=== PATIENT | male | born 1970 | race Two or more races ===

== ENCOUNTER 2025-08-31 20:38 | Inpatient (IN) | payer BC ==
[~2025-08-31] VITALS: Ht 177.8 cm; Wt 90.4 kg
[2025-08-31 21:26] VITALS: BP 154/118; PULSE 86; RESP 17; TEMP 97.7; O2SAT 97
[2025-08-31] MEDS ORDERED: AMOX500C2 PO (23:19)
[2025-08-31] MEDS ORDERED: TAMS-35 PO (23:19)
[2025-08-31 23:44] LABS: Hematocrit 42.7 % (41.0-53.0); Hemoglobin 14.5 g/dL (13.5-17.5); Mean Corpuscular Hemoglobin 29.7 pg (28.0-32.0); Mean Corpuscular Volume 87.6 fL (80.0-100.0); Nucleated Red Blood Cells % 0.1 %
[2025-08-31 23:55] LABS: Alanine Aminotransferase 30 U/L (7-40); Albumin 4.2 g/dL (3.2-4.8); Alkaline Phosphatase 89 U/L (46-116); Anion Gap 9 (5-15); BUN/Creatinine Ratio 15.6 (10.0-20.0); Blood Urea Nitrogen 17 mg/dL (9-23); Calcium 9.5 mg/dL (8.7-10.4); Carbon Dioxide 27 mmol/L (20-31); Chloride 105 mmol/L (98-107); Glucose 97 mg/dL (74-106); Potassium 3.6 mmol/L (3.5-5.1); Sodium 141 mmol/L (136-145); Total Protein 7.2 g/dL (5.7-8.2); Urine Protein, UAD Negative (Negative)
[2025-08-31 23:56] LABS: Bilirubin, Total 0.7 mg/dL (0.2-1.0)
[2025-09-01] VITALS (7 sets, daily range): BP systolic 141–153; BP diastolic 92–107; PULSE 65–92; RESP 16–18; TEMP 97.4–98.6; O2SAT 96–98
[2025-09-01] MEDS ORDERED: VALSARTAN 80 MG TAB PO SCH (00:30)
[2025-09-01] MEDS ORDERED: ACETAMINOPHEN 325 MG TAB PO PRN (00:30)
[2025-09-01] MEDS ORDERED: ONDANSETRON HCL 4 MG/2 ML VIAL IV PRN (00:30)
[2025-09-01] MEDS: SOD CHL 0.45% 1,000 ML IV SCH (00:45)
[2025-09-01] MEDS ORDERED: HYDROmorphone HCL 2 MG/ML VL/or syr IV PRN (00:45)
--- NOTE | 2025-09-01 00:48 | DVHHP2 ---
Admitting Diagnosis: Recurrence of R ureter colic [place] Nephrosis R kidney Urinary tract infection-partially treated History of Present Illness Dougie Watson, 55-year-old middle-aged male with known history of recurrent nephrolithiasis and hydronephrosis is admitted for further eval and management Further eval and management of recurrent severe flank pains, dysuria, hematuria frequency of urine, fever, chills x 4 weeks. As per patient, he developed symptoms of R flank pains around August 12 2025, He received evaluation at ER of [facility] and was diagnosed R hydronephrosis. He was discharged home with non-steroidals, and advised plenty of fluids. Subsequently in following two weeks, he received CT abdomen evaluation at ER of one of the hospitals in [place] and diagnosed to have R hydronephrosis. He was recommended to receive Flomax. The patient saw me in my office on 08/24/2025 Recommended him to receive hospitalization. He deferred stating that he had scheduled family trip to [facility] by 08/28/2025. Subsequently I had case discussion with his Nataly about complications from not receiving treatment in time could result into obstructive uropathy and possible acute renal failure. Recommended him to receive Renal /bladder ultrasound and lab exams as outpatient The patient presented to my office with fever, chills, recurrent severe flank pains, dysuria, hematuria and frequency of urine. Patient stated he is not feeling well. He was noted to be febrile, hypovolemic and L CVA tender His urine analysis remarkable for proteinuria, hematuria suggestive of acute pyelonephritis. Following to my case discussion with Shannon malt house loader I admitted patient to [facility]. Past Medical History Past medical history records: Reviewed Cardiovascular history: Hypertension for past several years-currently on no antihypertensives Respiratory history: No history of COPD Gastrointestinal history: Hiatal hernia, GE reflux, Kang's esophagus history of acute pancreatitis 10/2022 Genitourinary history: Nephrolithiasis, R ureter colic complicated by bilateral hydronephrosis through CT scan-10/2022 Recurrence of R ureteric colic, hydronephrosis R kidney and UTI Since 08/12/2025 Endocrine history: Hypercholesterolemia Neurology history: No history of TIA/CVA Neuro- Musculoskeletal history: R Knee meniscus injury and chondromalacia R femur Past Surgical History R knee surgery Social History Socioeconomic status: , lives with spouse employed as a teacher History of smoking: Cigarettes: Never History of smoking E cigarettes: Denies History of smoking marijuana: Denies History of drinking alcohol: Gladis History of substance abuse: Never Patient Family History: Patient reports no known family medical history. Allergies: Coded Allergies: NO KNOWN ALLERGIES (Unverified , 09/01/25) As per patient Home Meds Active Scripts Aspirin (ASPIRIN 81) 81 Mg Tab, 81 MG OR DAILY for 100 Days, #100 TAB Prov:JESSE WOOTEN MD 09/04/25 Atorvastatin Calcium (Lipitor) 10 Mg Tab, 1 TAB PO PC dinner, #100 TAB 1 Refill Hold if calf muscle pains Prov:JESSE WOOTEN MD 09/04/25 Valsartan (Valsartan) 80 Mg Tab, 80 MG PO DAILY, #30 TAB 2 Refills Hold if dizzy/ SBP <110 report to PMD if angioedema Prov:JESSE WOOTEN MD 09/04/25 Reported Medications Tamsulosin Hcl (Flomax) 0.4 Mg Cap, 1 CAP PO DAILY, #30 CAP 11 Refills 08/31/25 Discontinued Reported Medications Amoxicillin Trihydrate (Amoxicillin) 500 Mg Cap, 1 CAP PO BID, #20 CAP 08/31/25 Current Medications Review of Systems Constitutional: Reports easy tiredness, fever chills weight loss HEENT: Denies headache/conjunctival/ENT pains or congestion, Denies hoarse voice, hearing or visual deficit Neck: Denies cervical spine local/radicular pains, denies goiters/stridor Denies stiffness spasms, reduced ROM, RS: Denies chest congestion, cough, wheezing, SOB, pleuritic chest pains CVS: Denies angina, palpitation, SOB, edema, orthopnea, PND GI: Reports loss of appetite, RLQ abdominal pains, tenderness, Denies melena, GI bleeding,constipation, N/V/D, : Reports dysuria, flank pains, frequency, hematuria, Reports passing foul odor/cloudy turbid urine, nocturia MS: Denies generalized aches/pains, back pains, spasms, stiffness, Denies radicular pains, denies generalized myalgias/muscle weakness EXTs: Denies edema, rash, open wounds, discoloration, radicular pains NEURO: Denies hypersomnolence, confused mental status, Denies focal weakness or seizures/tremors/myoclonic jerks SKIN: Denies rashes or open ulcerated wound ENDOCRINE: Denies polyuria, polydipsia, denies intolerance to heat and cold HEM/LYMPH: Denies bruising, lymphadenopathy ALLERGY: Denies allergic reactions Psychiatry: Denies anxiety or depression disorder Otherwise the Review of Systems is Negative as per History & Physical Interview: Yes Vital Signs Vital Signs Date Time Temp Pulse Resp B/P (MAP) Pulse Ox O2 Delivery O2 Flow Rate FiO2 09/04/25 05:18 98.7 60 18 97 09/04/25 05:00 127/91 (103) 09/03/25 20:17 Room Air* 0 21 Physical Exam Vital Signs Date Time Temp Pulse Resp B/P (MAP) Pulse Ox O2 Delivery O2 Flow Rate FiO2 08/31/2025 21:26 97.7 86 17 154/118 (130) 97 98.6 General appearance: Well-developed, well-nourished middle-aged white male Noted to be hypovolemic generally weak, no respiratory distress Head: Normocephalic nontraumatic Eyes: EOMI, ROXANN, sclera nonicteric, conjunctive- pale Fundoscopy-grade 1 av changes ENT: No congestion, NSL bilateral symmetrical, oral mucosa dry Neck: Supple, carotid upstroke +2, trachea midline, JVD-3 cm, C spine- Full ROM No thyroid or lymph node , no use of sternomastoid muscle Chest: Bilateral symmetrical expansions,No costochondral tenderness Lungs: clear breath sounds all over except reduced at bases CVS: PMI-1cm medial to L MCL in fifth ICS , S1-S2 NSR no S3 GI: Abdomen soft, obese, bowel sounds normoactive, no mass No focal/rebound tenderness, No hepatosplenomegaly, No hernia , : R CVA tenderness, no bladder mass palpable, genitalia-NE SKIN: Turgor dry, color pink, no rash, no icterus,no ulcers or wounds EXTs: No edema, color pink, no rash, no ecchymosis, No open wounds PULSE: distal pulses +2 capillary refill <2 seconds, JOINTS: full range of motion BACK: No apparent lumbosacral spinal muscle tenderness LYMPH NODES: No cervical, axillary or inguinal lymph nodes Neuro: Awake alert oriented 4, coherent, all cognitives- intact No pronator drift, no focal motor deficit, No focal sensory deficit, DTR +2, gait steady Labs Test 08/31/25 23:29 Range/Units White Blood Count 5.4 4.4-10.8 10^3/uL Red Blood Count 4.87 4.5-5.90 10^6/uL Hemoglobin 14.5 13.5-17.5 g/dL Hematocrit 42.7 41.0-53.0 % Mean Corpuscular Volume 87.6 80.0-100.0 fL Mean Corpuscular Hemoglobin 29.7 28.0-32.0 pg Mean Corpuscular Hemoglobin Concent 33.9 32.0-36.0 g/dL Red Cell Distribution Width 13.1 11.8-14.3 % Platelet Count 217 140-450 10^3/uL Mean Platelet Volume 7.3 6.9-10.8 fL Neutrophils (%) (Auto) 54.9 37.0-80.0 % Lymphocytes (%) (Auto) 26.0 10.0-50.0 % Monocytes (%) (Auto) 11.6 0.0-12.0 % Eosinophils (%) (Auto) 6.6 0.0-7.0 % Basophils (%) (Auto) 0.9 0.0-2.0 % Neutrophils # (Auto) 3.0 1.6-8.6 10 ^3/uL Lymphocytes # (Auto) 1.4 0.4-5.4 10 ^3/uL Monocytes # (Auto) 0.6 0-1.3 10 ^3/uL Eosinophils # (Auto) 0.4 0-0.8 10 ^3/uL Basophils # (Auto) 0 0-0.2 10 ^3/uL Nucleated Red Blood Cells 0.1 % Urine Color Light-yellow Yellow Urine Clarity Clear Clear Urine pH 5.5 5.0-9.0 Urine Specific [place] 1.028 1.001-1.035 Urine Protein Negative Negative Urine Ketones Negative Negative Urine Blood 1+ H Negative /uL Urine Nitrite Negative Negative Urine Bilirubin Negative Negative Urine Urobilinogen Normal Negative mg/dL Urine Leukocyte Esterase Negative Negative /uL Urine RBC 8 0 - 3 /hpf Urine Microscopic WBC 6 H 0-3 /HPF Urine Squamous Epithelial Cells None seen <5 /hpf Urine Calcium Oxalate Crystals Few None Seen Urine Bacteria None seen None Seen /hpf Urine Hyaline Casts Few 0 - 2 /lpf Urine Mucus Few None Seen Urine Glucose Normal Normal mg/dL Sodium Level 141 136-145 mmol/L Potassium Level 3.6 3.5-5.1 mmol/L Chloride Level 105 98-107 mmol/L Carbon Dioxide Level 27 20-31 mmol/L Anion Gap 9 5-15 Blood Urea Nitrogen 17 9-23 mg/dL Creatinine 1.09 0.700-1.30 mg/dL Glomerular Filtration Rate Calc 80 >90 mL/min BUN/Creatinine Ratio 15.6 10.0-20.0 Serum Glucose 97 74-106 mg/dL Calcium Level 9.5 8.7-10.4 mg/dL Total Bilirubin 0.7 0.2-1.0 mg/dL Aspartate Amino Transferase (AST) 28 13-40 U/L Alanine Aminotransferase (ALT) 30 7-40 U/L Alkaline Phosphatase 89 46-116 U/L Total Protein 7.2 5.7-8.2 g/dL Albumin 4.2 3.2-4.8 g/dL PROCEDURE(s): ABPL - CT AB PEL WO CON-NO ORAL OR IV REASON: right flank pain, hx of kidney stone ORDER NUMBER(s): [id number], ACCESSION NUMBER(s): [id number] Exam: CT CT AB PEL WO CON-NO ORAL OR IV RESULTS PENDING SEPSIS Sepsis Screen Physician Orders Ct Ab Pel Wo Con-No Oral Or Iv (09/01/25 00:19) Blood Culture (09/01/25 00:40) Admit (09/01/25 04:44) * Gu Consult (09/01/25 09:00) Kub Abdomen Single View (09/03/25 07:45) Discharge (09/04/25 03:06) Vital Signs Date Time Temp Pulse Resp B/P (MAP) Pulse Ox O2 Delivery O2 Flow Rate FiO2 09/04/25 05:18 98.7 60 18 97 09/04/25 05:00 98.2 60 18 127/91 (103) 97 98.2 09/04/25 01:00 98.3 65 18 142/78 (99) 96 98.3 09/03/25 21:00 98.4 76 18 129/87 (101) 96 98.4 09/03/25 20:17 16 95 Room Air* 0 21 09/03/25 18:22 134/74 09/03/25 17:15 161/89 09/03/25 16:28 98.1 73 18 131/89 (103) 96 98.1 09/03/25 12:47 97.9 62 20 152/98 (116) 97 97.9 09/03/25 08:57 97.9 65 18 136/92 (107) 98 97.9 09/03/25 08:08 88 18 95 Room Air* 0 21 Laboratory Tests Test 08/31/25 23:29 09/01/25 06:22 09/03/25 06:48 White Blood Count 5.4 10^3/uL (4.4-10.8) 4.4 10^3/uL (4.4-10.8) 6.0 10^3/uL (4.4-10.8) # Results Labs Test 09/03/25 09:45 09/03/25 06:48 09/01/25 12:09 09/01/25 06:27 Range/Units Urine Color Yellow Yellow Urine Clarity Clear Clear Urine pH 5.5 5.0-9.0 Urine Specific [place] 1.024 1.001-1.035 Urine Protein Negative Negative Urine Ketones Negative Negative Urine Blood 1+ H Negative /uL Urine Nitrite Negative Negative Urine Bilirubin Negative Negative Urine Urobilinogen Normal Negative mg/dL Urine Leukocyte Esterase Negative Negative /uL Urine RBC 7 0 - 3 /hpf Urine Microscopic WBC 4 H 0-3 /HPF Urine Squamous Epithelial Cells Few <5 /hpf Urine Bacteria None seen None Seen /hpf Urine Mucus Few None Seen Urine Glucose Normal Normal mg/dL White Blood Count 6.0 # 4.4-10.8 10^3/uL Red Blood Count 4.47 L 4.5-5.90 10^6/uL Hemoglobin 13.4 L 13.5-17.5 g/dL Hematocrit 38.8 L 41.0-53.0 % Mean Corpuscular Volume 86.8 80.0-100.0 fL Mean Corpuscular Hemoglobin 30.0 28.0-32.0 pg Mean Corpuscular Hemoglobin Concent 34.6 32.0-36.0 g/dL Red Cell Distribution Width 13.0 11.8-14.3 % Platelet Count 188 140-450 10^3/uL Mean Platelet Volume 7.3 6.9-10.8 fL Neutrophils (%) (Auto) 61.9 37.0-80.0 % Lymphocytes (%) (Auto) 20.4 10.0-50.0 % Monocytes (%) (Auto) 9.7 0.0-12.0 % Eosinophils (%) (Auto) 7.5 H 0.0-7.0 % Basophils (%) (Auto) 0.5 0.0-2.0 % Neutrophils # (Auto) 3.7 1.6-8.6 10 ^3/uL Lymphocytes # (Auto) 1.2 0.4-5.4 10 ^3/uL Monocytes # (Auto) 0.6 0-1.3 10 ^3/uL Eosinophils # (Auto) 0.4 0-0.8 10 ^3/uL Basophils # (Auto) 0 0-0.2 10 ^3/uL Nucleated Red Blood Cells 0.0 % Sodium Level 141 136-145 mmol/L Potassium Level 3.8 3.5-5.1 mmol/L Chloride Level 107 98-107 mmol/L Carbon Dioxide Level 24 20-31 mmol/L Anion Gap 10 5-15 Blood Urea Nitrogen 19 9-23 mg/dL Creatinine 1.37 H 0.700-1.30 mg/dL Glomerular Filtration Rate Calc 61 >90 mL/min BUN/Creatinine Ratio 13.9 10.0-20.0 Serum Glucose 94 74-106 mg/dL Calcium Level 8.2 L 8.7-10.4 mg/dL Total Bilirubin 0.7 0.2-1.0 mg/dL Aspartate Amino Transferase (AST) 21 13-40 U/L Alanine Aminotransferase (ALT) 24 7-40 U/L Alkaline Phosphatase 74 46-116 U/L Total Protein 6.3 5.7-8.2 g/dL Albumin 3.6 3.2-4.8 g/dL Influenza Type A Antigen Negative Negative Influenza Type B Antigen Negative Negative SARS-CoV-2 Antigen (Rapid) Negative NEGATIVE Hemoglobin A1c 5.6 <5.7 % A1C Test 09/01/25 06:22 08/31/25 23:29 Range/Units Prothrombin Time 11.1 9.3-11.8 sec Prothrombin Time INR 1.05 0.9-1.15 Activated Partial Thromboplast Time 29.4 24.5-34.5 SEC Phosphorus Level 2.8 2.4-5.1 mg/dL Magnesium Level 2.0 1.6-2.6 mg/dL Triglycerides Level 187 H < 150 mg/dL Cholesterol Level 207 H < 200 mg/dL LDL Cholesterol 142 H < 100 mg/dL HDL Cholesterol 43 40-59 mg/dL Amylase Level 30 30-118 U/L Free Prostate Specific Antigen 0.31 N/A ng/mL Percent Free Prostate Specific Ag 14.1 . % Prostate Specific Antigen Total 2.2 0.0-4.0 ng/mL Vitamin B12 Level 533 211-911 pg/mL Urine Calcium Oxalate Crystals Few None Seen Urine Hyaline Casts Few 0 - 2 /lpf Microbiology Date/Time Source Procedure Growth Status 09/03/25 09:45 Voided Urine Urine Culture - Final Complete 09/01/25 01:11 Blood Blood Culture - Preliminary NO GROWTH AFTER 72 HOURS OF INCUBATION. Resulted Primary Diagnosis RECURRENCE OF R URETERIC STONE HYDRONEPHROSIS OF R KIDNEY Admitting Diagnosis: Recurrence of R ureter stone Suspect hydronephrosis R kidney Urinary tract infection-suspect Acute pyelonephritis Hypovolemia Uncontrolled hypertension 2' Diagnosis/Comorbidities Overweight obesity Medical decision making The patient has been symptomatically ill past 3-4 weeks and has become critically ill from treatment of suspected hydronephrosis, obstructive uropathy and possible acute pyelonephritis. Case was discussed with TERRY Huber who attended patient and transferred the care to tx from late evening of08/31/2025 * Recommended patient to receive CT abdomen * May need urology intervention * Recommended IV hydration * Recommended urine analysis, urine culture and IV antibiotics * Recommended parenteral analgesics for pain management Hypertension * Noted uncontrolled hypertension * Recommended antihypertensive medications Plan Admit patient to medical floor Recommended patient to receive CT abdomen Consider urology consult Recommended IV hydration Recommended urine analysis, urine culture and IV antibiotics Recommended parenteral analgesics for pain management Recommended antihypertensive medications Reconcile home medication VTE precautions Update patient The patient and/or family is well informed by me about 1. Clinical impression, treatment plans, side effects of medications, course of the disease and guarding prognosis 2. All patient's question/ concerns raised by patient are satisfactorily addressed by me Plan discussed with: Patient Code Visit Code Visit Total Time (mins): 120 JESSE WOOTEN MD Sep 01, 2025 00:48
--- NOTE | 2025-09-01 01:57 | DVH ---
Exam: CT CT AB PEL WO CON-NO ORAL OR IV History: right flank pain, hx of kidney stone Comparison Study: None Technique: Multidetector spiral CT of the abdomen was performed from lung bases to pubic symphysis. I maging was performed without IV contrast. Axial, coronal and sagittal multiplanar reformats were obta ined from the axial data set by the technologist. Radiation Dose : 1. Abdomen/Pelvis: CTDIvol 9.39 mGy, DLP 525.94 mGy*cm. Findings: Evaluation of solid organs is limited due to lack of intravenous contrast use. Lower Chest: No acute findings. Liver: Diffuse hypoattenuation. Gallbladder and Biliary Tree: Unremarkable Pancreas: Mild atrophy. Spleen: Unremarkable. Adrenal Glands: Unremarkable. Kidneys/Ureters: No evidence of obstruction or ureteral stone. 1-4 mm stones in the left inferior col lecting system. Unremarkable right kidney. Bladder: 6 mm stone in the right posterior bladder near the ureterovesicular junction. Pelvic Organs: Unremarkable as visualized. Bowel: No wall thickening or obstruction. Small hiatal hernia. No evidence of appendicitis. Vasculature: Unremarkable. Lymphadenopathy: No obvious adenopathy. Peritoneum: No ascites, free air, or fluid collection. Abdominal Wall: No significant hernia. Musculoskeletal: No acute abnormality. Degenerative changes of the spine and pelvis. IMPRESSION: 1. No upper urinary tract obstruction or other acute abdominopelvic abnormality. 2. A 6 mm stone in the bladder near the right UVJ likely represents a recently passed nonobstructing stone. Additional nonobstructing left renal stones. 3. Probable hepatic steatosis. Radiation optimization: All CT scans at this facility use at least one of these dose optimization larisa hniques: automated exposure control mA and/or kV adjustment per patient size (includes targeted exam s where dose is matched to clinical indication) or iterative reconstruction.
--- NOTE | 2025-09-01 04:49 | DVHHP2 ---
History of Present Illness Reason for Visit: Urinary symptoms History of Present Illness 55-year-old male presents for evaluation of urinary symptoms. Patient reports being diagnosed with a kidney stones a month and a half ago. He states recently completing antibiotic therapy in two days ago for a urinary tract infection. He reports mild right flank pain with associated dysuria. He was advised by his primary care provider to present for admission and treatment. Past Medical History Kang's esophagitis, kidney stone Past Surgical History Bilateral knee surgery, hernia repair Family History Noncontributory Smoke: No ALCOHOL: none Drugs: None Lives: with Family Review of Systems Review of Systems Review of systems are currently negative otherwise addressed in HPI. Allergies: Coded Allergies: NO KNOWN ALLERGIES (Unverified , 09/01/25) As per patient Medications Current Medications Medications Dose Ordered Sig/Criselda Route Start Time Stop Time Status Last Admin Dose Admin Acetaminophen/ Hydrocodone Bitart 1 tab Q4HP PRN PO 09/01/25 00:30 Ondansetron HCl 4 mg Q4HP PRN IV 09/01/25 00:30 Acetaminophen 650 mg Q6HP PRN PO 09/01/25 00:30 Ketorolac Tromethamine 15 mg Q6HPRN PRN IV 09/01/25 00:30 09/06/25 00:29 Sodium Chloride 1,000 ml @ 75 mls/hr [id number] IV 09/01/25 00:45 Clonidine HCl UD PRN PO 09/01/25 00:45 Levofloxacin/ Dextrose 100 ml @ 100 mls/hr DAILY IV 09/01/25 10:00 Exam Vital Signs Vital Signs Date Time Temp Pulse Resp B/P (MAP) Pulse Ox O2 Delivery O2 Flow Rate FiO2 09/01/25 04:42 98.6 76 17 141/103 (116) 98 98.6 Exam Gen: 55-year-old male in mild distress. Skin: Warm, dry, normal color and texture, no rash. HEENT: Normocephalic atraumatic, mucous membranes moist and pink. Neck: Cervical and supraclavicular nodes normal without enlargement, trachea is midline, thyroid gland is normal without masses. Pulmonary: Clear to auscultation and percussion bilaterally. Cardiac: Regular rate and rhythm. No murmur Abdomen: Soft, nontender, nondistended, bowel sounds present all 4 quadrants, no guarding, no rigidity, no organomegaly. Extremities: No cyanosis, clubbing, no edema Neuro: Cranial nerves II through XII grossly intact, normal affect and speech, no focal motor deficits. Labs/Xrays ORDERING PHYSICIAN: ERMA CORDOVA PROCEDURE(s): ABPL - CT AB PEL WO CON-NO ORAL OR IV REASON: right flank pain, hx of kidney stone ORDER NUMBER(s): [id number], ACCESSION NUMBER(s): [id number] Exam: CT CT AB PEL WO CON-NO ORAL OR IV History: right flank pain, hx of kidney stone Comparison Study: None Technique: Multidetector spiral CT of the abdomen was performed from lung bases to pubic symphysis. Imaging was performed without IV contrast. Axial, coronal and sagittal multiplanar reformats were obtained from the axial data set by the technologist. Radiation Dose : 1. Abdomen/Pelvis: CTDIvol 9.39 mGy, DLP 525.94 mGy*cm. Findings: Evaluation of solid organs is limited due to lack of intravenous contrast use. Lower Chest: No acute findings. Liver: Diffuse hypoattenuation. Gallbladder and Biliary Tree: Unremarkable Pancreas: Mild atrophy. Spleen: Unremarkable. Adrenal Glands: Unremarkable. Kidneys/Ureters: No evidence of obstruction or ureteral stone. 1-4 mm stones in the left inferior collecting system. Unremarkable right kidney. Bladder: 6 mm stone in the right posterior bladder near the ureterovesicular junction. Pelvic Organs: Unremarkable as visualized. Bowel: No wall thickening or obstruction. Small hiatal hernia. No evidence of appendicitis. Vasculature: Unremarkable. Lymphadenopathy: No obvious adenopathy. Peritoneum: No ascites, free air, or fluid collection. Abdominal Wall: No significant hernia. Musculoskeletal: No acute abnormality. Degenerative changes of the spine and pelvis. IMPRESSION: 1. No upper urinary tract obstruction or other acute abdominopelvic abnormality. 2. A 6 mm stone in the bladder near the right UVJ likely represents a recently passed nonobstructing stone. Additional nonobstructing left renal stones. 3. Probable hepatic steatosis. Radiation optimization: All CT scans at this facility use at least one of these dose optimization techniques: automated exposure control mA and/or kV adjustment per patient size (includes targeted exams where dose is matched to clinical indication) or iterative reconstruction. Labs Test 08/31/25 23:29 Range/Units White Blood Count 5.4 4.4-10.8 10^3/uL Red Blood Count 4.87 4.5-5.90 10^6/uL Hemoglobin 14.5 13.5-17.5 g/dL Hematocrit 42.7 41.0-53.0 % Mean Corpuscular Volume 87.6 80.0-100.0 fL Mean Corpuscular Hemoglobin 29.7 28.0-32.0 pg Mean Corpuscular Hemoglobin Concent 33.9 32.0-36.0 g/dL Red Cell Distribution Width 13.1 11.8-14.3 % Platelet Count 217 140-450 10^3/uL Mean Platelet Volume 7.3 6.9-10.8 fL Neutrophils (%) (Auto) 54.9 37.0-80.0 % Lymphocytes (%) (Auto) 26.0 10.0-50.0 % Monocytes (%) (Auto) 11.6 0.0-12.0 % Eosinophils (%) (Auto) 6.6 0.0-7.0 % Basophils (%) (Auto) 0.9 0.0-2.0 % Neutrophils # (Auto) 3.0 1.6-8.6 10 ^3/uL Lymphocytes # (Auto) 1.4 0.4-5.4 10 ^3/uL Monocytes # (Auto) 0.6 0-1.3 10 ^3/uL Eosinophils # (Auto) 0.4 0-0.8 10 ^3/uL Basophils # (Auto) 0 0-0.2 10 ^3/uL Nucleated Red Blood Cells 0.1 % Urine Color Light-yellow Yellow Urine Clarity Clear Clear Urine pH 5.5 5.0-9.0 Urine Specific [place] 1.028 1.001-1.035 Urine Protein Negative Negative Urine Ketones Negative Negative Urine Blood 1+ H Negative /uL Urine Nitrite Negative Negative Urine Bilirubin Negative Negative Urine Urobilinogen Normal Negative mg/dL Urine Leukocyte Esterase Negative Negative /uL Urine RBC 8 0 - 3 /hpf Urine Microscopic WBC 6 H 0-3 /HPF Urine Squamous Epithelial Cells None seen <5 /hpf Urine Calcium Oxalate Crystals Few None Seen Urine Bacteria None seen None Seen /hpf Urine Hyaline Casts Few 0 - 2 /lpf Urine Mucus Few None Seen Urine Glucose Normal Normal mg/dL Sodium Level 141 136-145 mmol/L Potassium Level 3.6 3.5-5.1 mmol/L Chloride Level 105 98-107 mmol/L Carbon Dioxide Level 27 20-31 mmol/L Anion Gap 9 5-15 Blood Urea Nitrogen 17 9-23 mg/dL Creatinine 1.09 0.700-1.30 mg/dL Glomerular Filtration Rate Calc 80 >90 mL/min BUN/Creatinine Ratio 15.6 10.0-20.0 Serum Glucose 97 74-106 mg/dL Calcium Level 9.5 8.7-10.4 mg/dL Total Bilirubin 0.7 0.2-1.0 mg/dL Aspartate Amino Transferase (AST) 28 13-40 U/L Alanine Aminotransferase (ALT) 30 7-40 U/L Alkaline Phosphatase 89 46-116 U/L Total Protein 7.2 5.7-8.2 g/dL Albumin 4.2 3.2-4.8 g/dL SEPSIS Sepsis Screen Physician Orders Ct Ab Pel Wo Con-No Oral Or Iv (09/01/25 00:19) Hydrocodone-Acet 5/325mg Tab ([place] 5/32 (09/01/25 00:30) Ondansetron Hcl (Zofran) (09/01/25 00:30) Condition: Stable (09/01/25 00:19) Acetaminophen Tablet (Tylenol Tablet) (09/01/25 00:30) Bedrest With Bathroom Privileg (09/01/25 00:19) Ketorolac Injection (Toradol Injection) (09/01/25 00:30) Sod Chl 0.45% (Sodium Chloride 0.45% Via (09/01/25 00:45) Regular Diet (09/01/25 Breakfast) Clonidine Hcl Tablet (Catapres Tablet) (09/01/25 00:45) Blood Culture (09/01/25 00:40) Urine Bacterial Culture (09/01/25 00:40) Notify If Abnormal Vs (09/01/25 00:40) Complete Blood Count (09/01/25 07:00) Comprehensive Metabolic Panel (09/01/25 07:00) Hemoglobin A1c (09/01/25 07:00) Lipid Panel (09/01/25 07:00) Magnesium (09/01/25 07:00) PTPTT (09/01/25 06:45) Vitamin B12 (09/01/25 06:55) Amylase (09/01/25 06:23) Phosphorus (09/01/25 06:23) Levofloxacin 500mg (Levaquin 500mg/ 100m (09/01/25 10:00) Vital Signs Date Time Temp Pulse Resp B/P (MAP) Pulse Ox O2 Delivery O2 Flow Rate FiO2 09/01/25 04:42 98.6 76 17 141/103 (116) 98 98.6 09/01/25 00:52 98.2 65 17 153/107 (122) 98 98.2 08/31/25 21:26 97.7 86 17 154/118 (130) 97 97.7 Laboratory Tests Test 08/31/25 23:29 White Blood Count 5.4 10^3/uL (4.4-10.8) Assessment/Plan Assessment/Plan Assessment Acute pyelonephritis Plan Admit the patient to [facility] to the hospitalist Hakeem Pain management Maintenance IV fluids Continue treatment per orders. Plan discussed with: Patient My Orders Orders - ERMA CORDOVA Procedure Category Date Status Time Ct Ab Pel Wo Con-No CT 09/01/25 Resulted Oral Or Iv 00:19 Hydrocodone-Acet PHA 09/01/25 In Process 5/325mg Tab ([place] 00:30 Ondansetron Hcl PHA 09/01/25 In Process (Zofran) 00:30 Condition: Stable SHADIA 09/01/25 In Process 00:19 Acetaminophen Tablet PHA 09/01/25 In Process (Tylenol Tablet) 00:30 Bedrest With Bathroom SHADIA 09/01/25 In Process Privileg 00:19 Ketorolac Injection PHA 09/01/25 In Process (Toradol Injection) 00:30 Levofloxacin 500mg PHA 09/01/25 In Process (Levaquin 500mg/ 100m 10:00 Date of Service: Sep 01, 2025 Billing Provider: ERMA CORDOVA Common Visit Codes: [id number] INP/OBS CARE (MOD) ERMA CORDOVA Sep 01, 2025 04:49
--- NOTE | 2025-09-01 06:48 | DVHPNRES ---
Progress Note Date Seen: Sep 01, 2025 Resident Creating Document: DONALDME DUKEENAL RESIDENT Subjective Review of Systems This is a 55 year old male with past medical history of Kang's esophagitis, presented to the ER with chief complain of right lower abdominal pain. Patient complains that the pain started suddenly 1 week back, radiating to the left lower back, described as dull, 2/10, improves with walking. He also complains of associated burning micturition and increased urinary frequency, urging him to urinate every 15 minutes. He also complained of seeing some blood in urine few days back. He vomited 3 times, vomitus contained food contents, no hematemesis. He complained of fever (99), chills, feeling clammy. He reportedly underwent a CAT scan in July showing a stone in urethra, on July 30, he went to [facility] where he was conservatively managed with a kidney stone, on August 01 after his discharge, he continued to complain of pain. After which he went to [facility] where a CT scan was done showing a nonobstructing stone. He denies constipation, diarrhea. Previous hospitalization: In July 2025 in [place] for nephrolithiasis PMHx: Kang's esophagitis, asthma PSHx: Hernia repair, patellar tendon repair Family history: Breast cancer in mother Social history: Denies alcohol, smoking, recreational drug use. Lives in house with family, full code, next to kin is . Home medication: Flomax Allergic history: None ROS: Constitutional: Denies weight loss, fever and chills. HEENT: Denies changes in vision and hearing. Respiratory: Denies shortness of breath and cough Cardiovascular: Denies chest discomfort or palpitations GI: Denies abdominal pain, nausea, vomiting and diarrhea. : Denies dysuria and urinary frequency. Musculoskeletal: Denies myalgias and joint pain Skin: Denies rash and pruritus. Neurological: Denies dizziness, headache, vision or hearing problems 09/01/2025: Patient was examined at bedside today. CT showing stone in urinary bladder. Patient is started on IV antibiotics and fluids. Objective vital signs Vital Sign Date Time Temp Pulse Resp B/P (MAP) Pulse Ox O2 Delivery O2 Flow Rate FiO2 09/01/25 04:42 98.6 76 17 141/103 (116) 98 98.6 Total Intake and Output 08/31/25 08/31/25 09/01/25 15:00 23:00 07:00 Intake Total 800 ml Balance 800 ml medications Current Medications Medications Dose Ordered Sig/Criselda Route Start Time Stop Time Status Last Admin Dose Admin Acetaminophen/ Hydrocodone Bitart 1 tab Q4HP PRN PO 09/01/25 00:30 Ondansetron HCl 4 mg Q4HP PRN IV 09/01/25 00:30 Acetaminophen 650 mg Q6HP PRN PO 09/01/25 00:30 Ketorolac Tromethamine 15 mg Q6HPRN PRN IV 09/01/25 00:30 09/06/25 00:29 Sodium Chloride 1,000 ml @ 75 mls/hr [id number] IV 09/01/25 00:45 Clonidine HCl UD PRN PO 09/01/25 00:45 Levofloxacin/ Dextrose 100 ml @ 100 mls/hr DAILY IV 09/01/25 10:00 Examination General: Patient alert and oriented in person, place and time. Patient following commands. HEENT: Normocephalic, atraumatic, moist mucous membranes Respiratory/pulmonary: Clear lungs bilaterally, vesicular murmurs present in almost all lung pulliam, no associated crackles or wheezes. Cardiovascular: Normal heart sounds S1 and S2 with no associated murmurs Abdomen: Right flank tenderness without guarding or rigidity. No abdominal mass palpated. Extremities: There is no peripheral edema present at the lower extremities. Peripheral Pulses: 3+ Radial (R). 3+ Radial (L). 3+ Dorsalis pedis (R). 3+ Dorsalis pedis(L) Skin: No rashes or pruritus, there is no sacral edema present at this time. Neurological: Intact cranial nerves with no focal neurologic deficits laboratory and microbiology Laboratory Tests 08/31/25 23:29 Test 08/31/25 23:29 Range/Units Serum Glucose 97 74-106 mg/dL Problem List/Assessment/Plan Problem List/Assessment/Plan Acute pyelonephritis CT abdomen shows 6 mm stone in urinary bladder near right UVJ Started on Levaquin Continue IV fluids Hepatic steatosis CT shows hepatic steatosis Hypokalemia Potassium supplemented Monitor potassium levels DIET: DVT PROPHYLAXIS: Lovenox GI PROPHYLAXIS: Protonix CODE STATUS: Goals of care discussed with patient at bedside for more than 17 minutes. Full code DISPOSITION: Med/surge This medical document was created using an electronic medical record system with M*M flurency direct computerized dictation system. Although this document has been carefully reviewed, there may still be some phonetic and typographical errors. These areas are purely typographical due to imperfections of the software programs, and do not reflect any compromise in the patient's medical care. Patient's status and plan discussed with the patient. Case discussed with Dr. Potter Date of Service: Sep 01, 2025 Billing Provider: GREGORY POTTER MD Common Visit Codes: [id number] INP/OBS CARE(HIGH) JAKE KUNZ RESIDENT Sep 01, 2025 06:48
[2025-09-01 07:27] LABS: Hematocrit 42.8 % (41.0-53.0); Hemoglobin 15.1 g/dL (13.5-17.5); Mean Corpuscular Hemoglobin 30.2 pg (28.0-32.0); Mean Corpuscular Volume 85.9 fL (80.0-100.0); Nucleated Red Blood Cells % 0.5 %
[2025-09-01 07:47] LABS: Alanine Aminotransferase 33 U/L (7-40); Alkaline Phosphatase 93 U/L (46-116); Anion Gap 11 (5-15); BUN/Creatinine Ratio 13.9 (10.0-20.0); Blood Urea Nitrogen 15 mg/dL (9-23); Calcium 9.1 mg/dL (8.7-10.4); Carbon Dioxide 26 mmol/L (20-31); Chloride 103 mmol/L (98-107); Glucose 103 mg/dL (74-106); Magnesium 2.0 mg/dL (1.6-2.6); Sodium 140 mmol/L (136-145); Total Protein 7.3 g/dL (5.7-8.2)
[2025-09-01 07:48] LABS: Albumin 4.3 g/dL (3.2-4.8); HDL Cholesterol 43 mg/dL (40-59)
[2025-09-01 07:49] LABS: Bilirubin, Total 1.0 mg/dL (0.2-1.0); INR 1.05 (0.9-1.15); Partial Thromboplastin Time 29.4 SEC (24.5-34.5); Prothrombin Time 11.1 sec (9.3-11.8)
[2025-09-01 07:50] LABS: Amylase 30 U/L (30-118); Cholesterol 207 mg/dL (< 200); Potassium 3.4 mmol/L (3.5-5.1); Triglycerides 187 mg/dL (< 150)
[2025-09-01] MEDS: POTASSIUM EFFERVESENT TAB 25 MEQ PO ONE (09:15)
[2025-09-01] MEDS: TAMSULOSIN HYDROCHLORIDE 0.4 MG CAP PO ONE (09:54)
--- NOTE | 2025-09-01 12:34 | DVHINCON2 ---
Date of service: Sep 01, 2025 Referring Physician hospitalist Reason for Consultation ureteral stone History of Present Illness History Source: Patient, MD Notes Exam Limitations: No limitations HPI 55-year-old male presents for evaluation of urinary symptoms. Patient reports being diagnosed with a kidney stones a month and a half ago. He states recently completing antibiotic therapy in two days ago for a urinary tract infection. He reports mild right flank pain with associated dysuria. He was advised by his primary care provider to present for admission and treatment. Past Medical History Kang's esophagitis, kidney stone Past Surgical History Bilateral knee surgery, hernia repair Family History Noncontributory Smoke: No ALCOHOL: none Drugs: None Lives: with Family Home Meds Reported Medications Amoxicillin Trihydrate (Amoxicillin) 500 Mg Cap, 1 CAP PO BID, #20 CAP 08/31/25 Tamsulosin Hcl (Flomax) 0.4 Mg Cap, 1 CAP PO DAILY, #30 CAP 11 Refills 08/31/25 Past Medical History Patient Family History: Patient reports no known family medical history. Review of Systems Gastrointestinal: Abdominal Pain Genitourinary: Dysuria, Pain H&P Exam Vital Signs Vital Signs Date Time Temp Pulse Resp B/P (MAP) Pulse Ox O2 Delivery O2 Flow Rate FiO2 09/01/25 08:54 97.5 67 16 148/95 (112) 96 97.5 08/31/25 23:20 Room Air* 0 21 General Appeara: Well developed, Well nourished, Normal Appearance Neuro/Mental St: Alert, Oriented Appearance: Appropriate appearance, Appropriate insight Eye contact/ Speech: Cooperative, Good eye contact, Normal speech Skin Exam: Normal inspection, Normal color, Warm/dry Labs/Xrays [address] [address] Ph: [phone] DIAGNOSTIC IMAGING Diagnostic Imaging Report : [id number] Signed PATIENT: BRAXTON EASTON ACCT: [id number] UNIT: [id number] : 1970 LOC: CENTRAL ROOM / BED: [facility] / B AGE / SEX: 55 / M ADM STATUS: ADM IN SERVICE [id number] ORDERING PHYSICIAN: ERMA CORDOVA AGACNP PROCEDURE(s): ABPL - CT AB PEL WO CON-NO ORAL OR IV REASON: right flank pain, hx of kidney stone ORDER NUMBER(s): [id number], ACCESSION NUMBER(s): [id number] Exam: CT CT AB PEL WO CON-NO ORAL OR IV History: right flank pain, hx of kidney stone Comparison Study: None Technique: Multidetector spiral CT of the abdomen was performed from lung bases to pubic symphysis. Imaging was performed without IV contrast. Axial, coronal and sagittal multiplanar reformats were obtained from the axial data set by the technologist. Radiation Dose : 1. Abdomen/Pelvis: CTDIvol 9.39 mGy, DLP 525.94 mGy*cm. Findings: Evaluation of solid organs is limited due to lack of intravenous contrast use. Lower Chest: No acute findings. Liver: Diffuse hypoattenuation. Gallbladder and Biliary Tree: Unremarkable Pancreas: Mild atrophy. Spleen: Unremarkable. Adrenal Glands: Unremarkable. Kidneys/Ureters: No evidence of obstruction or ureteral stone. 1-4 mm stones in the left inferior collecting system. Unremarkable right kidney. Bladder: 6 mm stone in the right posterior bladder near the ureterovesicular junction. Pelvic Organs: Unremarkable as visualized. Bowel: No wall thickening or obstruction. Small hiatal hernia. No evidence of appendicitis. Vasculature: Unremarkable. Lymphadenopathy: No obvious adenopathy. Peritoneum: No ascites, free air, or fluid collection. Abdominal Wall: No significant hernia. Musculoskeletal: No acute abnormality. Degenerative changes of the spine and pelvis. IMPRESSION: 1. No upper urinary tract obstruction or other acute abdominopelvic abnormality. 2. A 6 mm stone in the bladder near the right UVJ likely represents a recently passed nonobstructing stone. Additional nonobstructing left renal stones. 3. Probable hepatic steatosis. Radiation optimization: All CT scans at this facility use at least one of these dose optimization techniques: automated exposure control mA and/or kV adjustment per patient size (includes targeted exams where dose is matched to clinical indication) or iterative reconstruction. ATED BY: JAZMYN ALMAGUER MD DICTATED DATE/TIME: 09/01/25153 SIGNED BY: JAZMYN ALMAGUER MD SIGNED DATE/TIME: 09/01/25153 CC: Labs Test 09/01/25 12:09 09/01/25 11:50 09/01/25 06:27 09/01/25 06:22 Range/Units Potassium Level 3.9 3.5-5.1 mmol/L Hemoglobin A1c 5.6 <5.7 % A1C White Blood Count 4.4 4.4-10.8 10^3/uL Red Blood Count 4.99 4.5-5.90 10^6/uL Hemoglobin 15.1 13.5-17.5 g/dL Hematocrit 42.8 41.0-53.0 % Mean Corpuscular Volume 85.9 80.0-100.0 fL Mean Corpuscular Hemoglobin 30.2 28.0-32.0 pg Mean Corpuscular Hemoglobin Concent 35.2 32.0-36.0 g/dL Red Cell Distribution Width 13.4 11.8-14.3 % Platelet Count 214 140-450 10^3/uL Mean Platelet Volume 7.4 6.9-10.8 fL Neutrophils (%) (Auto) 58.0 37.0-80.0 % Lymphocytes (%) (Auto) 22.3 10.0-50.0 % Monocytes (%) (Auto) 11.5 0.0-12.0 % Eosinophils (%) (Auto) 7.4 H 0.0-7.0 % Basophils (%) (Auto) 0.8 0.0-2.0 % Neutrophils # (Auto) 2.6 1.6-8.6 10 ^3/uL Lymphocytes # (Auto) 1.0 0.4-5.4 10 ^3/uL Monocytes # (Auto) 0.5 0-1.3 10 ^3/uL Eosinophils # (Auto) 0.3 0-0.8 10 ^3/uL Basophils # (Auto) 0 0-0.2 10 ^3/uL Nucleated Red Blood Cells 0.5 % Prothrombin Time 11.1 9.3-11.8 sec Prothrombin Time INR 1.05 0.9-1.15 Activated Partial Thromboplast Time 29.4 24.5-34.5 SEC Sodium Level 140 136-145 mmol/L Chloride Level 103 98-107 mmol/L Carbon Dioxide Level 26 20-31 mmol/L Anion Gap 11 5-15 Blood Urea Nitrogen 15 9-23 mg/dL Creatinine 1.08 0.700-1.30 mg/dL Glomerular Filtration Rate Calc 81 >90 mL/min BUN/Creatinine Ratio 13.9 10.0-20.0 Serum Glucose 103 74-106 mg/dL Calcium Level 9.1 8.7-10.4 mg/dL Phosphorus Level 2.8 2.4-5.1 mg/dL Magnesium Level 2.0 1.6-2.6 mg/dL Total Bilirubin 1.0 0.2-1.0 mg/dL Aspartate Amino Transferase (AST) 35 13-40 U/L Alanine Aminotransferase (ALT) 33 7-40 U/L Alkaline Phosphatase 93 46-116 U/L Total Protein 7.3 5.7-8.2 g/dL Albumin 4.3 3.2-4.8 g/dL Triglycerides Level 187 H < 150 mg/dL Cholesterol Level 207 H < 200 mg/dL LDL Cholesterol 142 H < 100 mg/dL HDL Cholesterol 43 40-59 mg/dL Amylase Level 30 30-118 U/L Vitamin B12 Level 533 211-911 pg/mL Test 08/31/25 23:29 Range/Units Urine Color Light-yellow Yellow Urine Clarity Clear Clear Urine pH 5.5 5.0-9.0 Urine Specific [place] 1.028 1.001-1.035 Urine Protein Negative Negative Urine Ketones Negative Negative Urine Blood 1+ H Negative /uL Urine Nitrite Negative Negative Urine Bilirubin Negative Negative Urine Urobilinogen Normal Negative mg/dL Urine Leukocyte Esterase Negative Negative /uL Urine RBC 8 0 - 3 /hpf Urine Microscopic WBC 6 H 0-3 /HPF Urine Squamous Epithelial Cells None seen <5 /hpf Urine Calcium Oxalate Crystals Few None Seen Urine Bacteria None seen None Seen /hpf Urine Hyaline Casts Few 0 - 2 /lpf Urine Mucus Few None Seen Urine Glucose Normal Normal mg/dL Assessment/Plan Problem List: (1) Urinary calculus, unspecified Plan recently passed left renal stone Plan discussed with: Patient, Other MACARIO PARADA NP Sep 01, 2025 12:34
[2025-09-01 13:00] LABS: COVID19 ANTIGEN SOFIA FIA NEGATIVE (NEGATIVE)
[2025-09-01] MEDS: TAMSULOSIN HYDROCHLORIDE 0.4 MG CAP PO SCH (17:54)
[2025-09-01] MEDS: HYDROcodone-ACET 5/325MG TAB PO PRN (21:57)
[2025-09-02] VITALS (9 sets, daily range): BP systolic 131–160; BP diastolic 78–109; PULSE 61–83; RESP 14–19; TEMP 97.4–98.2; O2SAT 90–99
--- NOTE | 2025-09-02 00:28 | DVHPN2 ---
Progress Note - Dictate Date Seen: Sep 01, 2025 Medical Necessity Reason Medical Necessity Reason Patient is currently being treated for severe R flank pain, febrile illness and chills Received CT scan of abdomen which shows possible UVJ stone Refer patient to Dr. Mickey Little urology His urinalysis is remarkable for partially treated UTI Patient is continued on IV hydration, IV antibiotics and parenteral analgesics Case is discussed with Dr. Potter. He agrees that he should continue following the patient vital signs Vital Sign Date Time Temp Pulse Resp B/P (MAP) Pulse Ox O2 Delivery O2 Flow Rate FiO2 09/01/25 21:00 97.5 92 18 144/92 (109) 97 97.5 09/01/25 20:00 Room Air* 0 21 Total Intake and Output 09/01/25 09/01/25 09/02/25 15:00 23:00 07:00 Intake Total 100 ml 1075 ml Balance 100 ml 1075 ml medications Current Medications Medications Dose Ordered Sig/Criselda Route Start Time Stop Time Status Last Admin Dose Admin Acetaminophen/ Hydrocodone Bitart 1 tab Q4HP PRN PO 09/01/25 00:30 09/01/25 21:57 1 TAB Ondansetron HCl 4 mg Q4HP PRN IV 09/01/25 00:30 Acetaminophen 650 mg Q6HP PRN PO 09/01/25 00:30 Ketorolac Tromethamine 15 mg Q6HPRN PRN IV 09/01/25 00:30 09/06/25 00:29 Sodium Chloride 1,000 ml @ 75 mls/hr [id number] IV 09/01/25 00:45 09/01/25 13:09 75 MLS/HR Clonidine HCl UD PRN PO 09/01/25 00:45 Levofloxacin/ Dextrose 100 ml @ 100 mls/hr DAILY IV 09/01/25 10:00 09/01/25 09:54 100 MLS/HR Tamsulosin HCl 0.4 mg QPM PO 09/01/25 18:00 09/01/25 17:54 0.4 MG laboratory and microbiology Laboratory Tests 09/01/25 11:50 09/01/25 06:22 Test 09/01/25 06:22 Range/Units Serum Glucose 103 74-106 mg/dL Problem List R UVJ stone Partially treated urinary tract infection Hypovolemia Uncontrolled hypertension Assessment/Plan Continue hospitalization on telemetry floor Reviewed input of Ms Brooklynn Campos Continue IV hydration Continue IV antibiotics Continue parenteral analgesics Start patient on valsartan-side effects are explained to the patient JESSE WOOTEN MD Sep 02, 2025 00:28
[2025-09-02] MEDS: KETOROLAC TROMETH 30 MG/ML 1ML VIAL IV PRN (01:44)
[2025-09-02 06:07] LABS: Prostate Specific Antigen 2.2 ng/mL (0.0-4.0)
[2025-09-03] VITALS (8 sets, daily range): BP systolic 127–152; BP diastolic 86–98; PULSE 59–88; RESP 16–20; TEMP 97.8–98.4; O2SAT 95–98
--- NOTE | 2025-09-03 05:57 | DVH ---
Exam: XY KUB ABDOMEN SINGLE VIEW Indication: vesical stone Comparison: CT CT AB PEL WO CON-NO ORAL OR IV on DOS: 09/01/25 Technique: 1 radiographic views of the abdomen. Findings: Nonobstructive bowel gas pattern noted. Moderate to large volume colonic stool. There is no definite evidence for pneumoperitoneum. No abnormal calcifications noted. Impression: No radiographically apparent kidney stone. Moderate to large volume colonic stool.
[2025-09-03 07:23] LABS: Hematocrit 38.8 % (41.0-53.0); Hemoglobin 13.4 g/dL (13.5-17.5); Mean Corpuscular Hemoglobin 30.0 pg (28.0-32.0); Mean Corpuscular Volume 86.8 fL (80.0-100.0); Nucleated Red Blood Cells % 0.0 %
[2025-09-03 07:38] LABS: Alanine Aminotransferase 24 U/L (7-40); Albumin 3.6 g/dL (3.2-4.8); Alkaline Phosphatase 74 U/L (46-116); Anion Gap 10 (5-15); BUN/Creatinine Ratio 13.9 (10.0-20.0); Bilirubin, Total 0.7 mg/dL (0.2-1.0); Blood Urea Nitrogen 19 mg/dL (9-23); Calcium 8.2 mg/dL (8.7-10.4); Carbon Dioxide 24 mmol/L (20-31); Chloride 107 mmol/L (98-107); Glucose 94 mg/dL (74-106); Potassium 3.8 mmol/L (3.5-5.1); Sodium 141 mmol/L (136-145); Total Protein 6.3 g/dL (5.7-8.2)
[2025-09-03 12:33] LABS: Urine Protein, UAD Negative (Negative)
[2025-09-04] MEDS: POTASSIUM CHL 20 Meq TABLET PO SCH (00:37)
[2025-09-04 01:00] VITALS: BP 142/78; PULSE 65; RESP 18; TEMP 98.3; O2SAT 96
[2025-09-04] MEDS ORDERED: ATOR10TA PO (02:57)
[2025-09-04] MEDS ORDERED: VALS1TAB57 PO (02:57)
[2025-09-04] MEDS ORDERED: ASPI-498 OR (02:57)
[2025-09-04 05:00] VITALS: BP 127/91; PULSE 60; RESP 18; TEMP 98.2; O2SAT 97
[2025-09-04 05:18] VITALS: BP 127/91; PULSE 60; RESP 18; TEMP 98.7; O2SAT 97
--- NOTE | 2025-09-04 11:29 | DVHPN2 ---
Progress Note - Dictate Date Seen: Sep 03, 2025 Subjective Responding to current Rx measures vital signs Vital Sign Date Time Temp Pulse Resp B/P (MAP) Pulse Ox O2 Delivery O2 Flow Rate FiO2 09/03/25 21:00 98.4 76 18 129/87 (101) 96 98.4 09/03/25 20:17 Room Air* 0 21 Total Intake and Output 09/02/25 09/02/25 09/03/25 15:00 23:00 07:00 Intake Total 100 ml 600 ml 450 ml Output Total 550 ml Balance 100 ml 600 ml -100 ml medications Current Medications Medications Dose Ordered Sig/Criselda Route Start Time Stop Time Status Last Admin Dose Admin Acetaminophen/ Hydrocodone Bitart 1 tab Q4HP PRN PO 09/01/25 00:30 09/03/25 01:01 1 TAB Ondansetron HCl 4 mg Q4HP PRN IV 09/01/25 00:30 Acetaminophen 650 mg Q6HP PRN PO 09/01/25 00:30 Ketorolac Tromethamine 15 mg Q6HPRN PRN IV 09/01/25 00:30 09/06/25 00:29 09/03/25 03:54 15 MG Sodium Chloride 1,000 ml @ 75 mls/hr [id number] IV 09/01/25 00:45 09/03/25 18:22 75 MLS/HR Clonidine HCl UD PRN PO 09/01/25 00:45 09/03/25 17:15 0.1 MG Levofloxacin/ Dextrose 100 ml @ 100 mls/hr DAILY IV 09/01/25 10:00 09/03/25 10:00 100 MLS/HR Tamsulosin HCl 0.4 mg QPM PO 09/01/25 18:00 09/03/25 17:14 0.4 MG laboratory and microbiology Laboratory Tests 09/03/25 06:48 Test 09/03/25 06:48 Range/Units Serum Glucose 94 74-106 mg/dL Problem List R UVJ stone Partially treated urinary tract infection Hypovolemia Uncontrolled hypertension Assessment/Plan Continue hospitalization on telemetry floor Reviewed Xray abdomen and UA Recommend K replacement Continue IV hydration Continue IV antibiotics Continue parenteral analgesics Start patient on valsartan-side effects are explained to the patient start Lipitor 20 mg PO daily JESSE WOOTEN MD Sep 03, 2025 23:51
--- NOTE | 2025-09-05 00:44 | DVHPN2 ---
Progress Note - Dictate Date Seen: Sep 04, 2025 Subjective Responding to current Rx measures remains symptom-free Did not require parenteral analgesics over past 24 hours X-ray KUB shows signs of vesicle colic Urine analysis reflects significant improvement in UTI Overnight events are reviewed through medical chart and case discussion with patient's assigned RN while making rounds on patient on the day of service vital signs Vital Sign Date Time Temp Pulse Resp B/P (MAP) Pulse Ox O2 Delivery O2 Flow Rate FiO2 09/04/25 05:18 98.7 60 18 97 09/04/25 05:00 127/91 (103) 09/03/25 20:17 Room Air* 0 21 laboratory and microbiology Laboratory Tests 09/03/25 06:48 Test 09/03/25 06:48 Range/Units Serum Glucose 94 74-106 mg/dL Problem List R UVJ stone Partially treated urinary tract infection Hypovolemia Uncontrolled hypertension Assessment/Plan Continue hospitalization on telemetry floor Reviewed Xray abdomen and UA Recommend K replacement Continue IV hydration Continue IV antibiotics Continue parenteral analgesics Start patient on valsartan-side effects are explained to the patient start Lipitor 20 mg PO daily JESSE WOOTEN MD Sep 05, 2025 00:44
--- NOTE | 2025-09-05 00:46 | DVHDS2 ---
Discharge Summary Date of Admission Aug 31, 2025 at 20:38 Date of Discharge: Sep 04, 2025 Admitting Diagnosis Ureteric colic R Recent history of hydronephrosis Urinary tract infection Labs/Diagnostic Data: Laboratory Results Test 09/03/25 09:45 09/03/25 06:48 09/01/25 12:09 09/01/25 06:27 Urine Color Yellow (Yellow) Urine Clarity Clear (Clear) Urine pH 5.5 (5.0-9.0) Urine Specific [place] 1.024 (1.001-1.035) Urine Protein Negative (Negative) Urine Ketones Negative (Negative) Urine Blood 1+ /uL (Negative) Urine Nitrite Negative (Negative) Urine Bilirubin Negative (Negative) Urine Urobilinogen Normal mg/dL (Negative) Urine Leukocyte Esterase Negative /uL (Negative) Urine RBC 7 /hpf (0 - 3) Urine Microscopic WBC 4 /HPF (0-3) Urine Squamous Epithelial Cells Few /hpf (<5) Urine Bacteria None seen /hpf (None Seen) Urine Mucus Few (None Seen) Urine Glucose Normal mg/dL (Normal) White Blood Count 6.0 10^3/uL (4.4-10.8) Red Blood Count 4.47 10^6/uL (4.5-5.90) Hemoglobin 13.4 g/dL (13.5-17.5) Hematocrit 38.8 % (41.0-53.0) Mean Corpuscular Volume 86.8 fL (80.0-100.0) Mean Corpuscular Hemoglobin 30.0 pg (28.0-32.0) Mean Corpuscular Hemoglobin Concent 34.6 g/dL (32.0-36.0) Red Cell Distribution Width 13.0 % (11.8-14.3) Platelet Count 188 10^3/uL (140-450) Mean Platelet Volume 7.3 fL (6.9-10.8) Neutrophils (%) (Auto) 61.9 % (37.0-80.0) Lymphocytes (%) (Auto) 20.4 % (10.0-50.0) Monocytes (%) (Auto) 9.7 % (0.0-12.0) Eosinophils (%) (Auto) 7.5 % (0.0-7.0) Basophils (%) (Auto) 0.5 % (0.0-2.0) Neutrophils # (Auto) 3.7 10 ^3/uL (1.6-8.6) Lymphocytes # (Auto) 1.2 10 ^3/uL (0.4-5.4) Monocytes # (Auto) 0.6 10 ^3/uL (0-1.3) Eosinophils # (Auto) 0.4 10 ^3/uL (0-0.8) Basophils # (Auto) 0 10 ^3/uL (0-0.2) Nucleated Red Blood Cells 0.0 % Sodium Level 141 mmol/L (136-145) Potassium Level 3.8 mmol/L (3.5-5.1) Chloride Level 107 mmol/L (98-107) Carbon Dioxide Level 24 mmol/L (20-31) Anion Gap 10 (5-15) Blood Urea Nitrogen 19 mg/dL (9-23) Creatinine 1.37 mg/dL (0.700-1.30) Glomerular Filtration Rate Calc 61 mL/min (>90) BUN/Creatinine Ratio 13.9 (10.0-20.0) Serum Glucose 94 mg/dL (74-106) Calcium Level 8.2 mg/dL (8.7-10.4) Total Bilirubin 0.7 mg/dL (0.2-1.0) Aspartate Amino Transferase (AST) 21 U/L (13-40) Alanine Aminotransferase (ALT) 24 U/L (7-40) Alkaline Phosphatase 74 U/L (46-116) Total Protein 6.3 g/dL (5.7-8.2) Albumin 3.6 g/dL (3.2-4.8) Influenza Type A Antigen Negative (Negative) Influenza Type B Antigen Negative (Negative) SARS-CoV-2 Antigen (Rapid) Negative (NEGATIVE) Hemoglobin A1c 5.6 % A1C (<5.7) Test 09/01/25 06:22 08/31/25 23:29 Prothrombin Time 11.1 sec (9.3-11.8) Prothrombin Time INR 1.05 (0.9-1.15) Activated Partial Thromboplast Time 29.4 SEC (24.5-34.5) Phosphorus Level 2.8 mg/dL (2.4-5.1) Magnesium Level 2.0 mg/dL (1.6-2.6) Triglycerides Level 187 mg/dL (< 150) Cholesterol Level 207 mg/dL (< 200) LDL Cholesterol 142 mg/dL (< 100) HDL Cholesterol 43 mg/dL (40-59) Amylase Level 30 U/L (30-118) Free Prostate Specific Antigen 0.31 ng/mL (N/A) Percent Free Prostate Specific Ag 14.1 % (.) Prostate Specific Antigen Total 2.2 ng/mL (0.0-4.0) Vitamin B12 Level 533 pg/mL (211-911) Urine Calcium Oxalate Crystals Few (None Seen) Urine Hyaline Casts Few /lpf (0 - 2) Other Laboratory Tests 09/03/25 06:48 Final Diagnosis/Problems List 1. R UVJ COLIC 2. VESICAL CALCULUS 3. HYPOVOLEMIA 4. UTI 5. UNCONTROLLED HYPERTENSION 6. HYPERCHOLESTEREMIA Discharge Disposition: Home Discharge Instruct/Medications Diet: Cardiac 2g Na,low cholest Activity: Light activity Follow Up/Referral: Dr David Ross in 1-5 days Medications: pl refer to Discharge med rec Scheduled Aspirin (Aspirin 81), 81 MG OR DAILY Atorvastatin Calcium (Lipitor), 1 TAB PO PC dinner Tamsulosin Hcl (Flomax), 1 CAP PO DAILY, (Reported) Valsartan (Valsartan), 80 MG PO DAILY Discontinued Medications Amoxicillin Trihydrate (Amoxicillin), 1 CAP PO BID, (Reported) Discharge Statement: "Patient was advised to return to the ER or call 911 if any headaches, dizziness, shortness of breath, chest pain, abdominal pain, bleeding, fevers, or worsening of medical condition. Patient was counseled about treatment plan, medications, possible side effects, patientverbalized understanding. All questions were answered to the best of my ability. This discharge took greater then 30 minutes in planning, reviewing documentation, counseling the patient, and discussing with other team members." ASSESSMENT ASSESSMENT Assessment 1. R UVJ COLIC 2. VESICAL CALCULUS 3. HYPOVOLEMIA 4. UTI 5. UNCONTROLLED HYPERTENSION 6. HYPERCHOLESTEREMIA JESSE ROSS MD Sep 05, 2025 00:46
--- NOTE | 2025-09-05 00:47 | DVHPN2 ---
Progress Note - Dictate Date Seen: Sep 02, 2025 Subjective The patient is currently being treated for R ureterovesical stone Patient reports to have intermittently severe burning pains and urgency with passage of Dark urine. At times pain refers to low flank area. Patient requires parenteral analgesics Is continued on IV hydration, IV antibiotics and narcotic analgesics vital signs Vital Sign Date Time Temp Pulse Resp B/P (MAP) Pulse Ox O2 Delivery O2 Flow Rate FiO2 09/02/25 21:00 97.8 63 16 137/94 (108) 99 97.8 09/02/25 07:50 Room Air* 0 21 Total Intake and Output 09/01/25 09/01/25 09/02/25 15:00 23:00 07:00 Intake Total 100 ml 1075 ml 400 ml Balance 100 ml 1075 ml 400 ml medications Current Medications Medications Dose Ordered Sig/Criselda Route Start Time Stop Time Status Last Admin Dose Admin Acetaminophen/ Hydrocodone Bitart 1 tab Q4HP PRN PO 09/01/25 00:30 09/01/25 21:57 1 TAB Ondansetron HCl 4 mg Q4HP PRN IV 09/01/25 00:30 Acetaminophen 650 mg Q6HP PRN PO 09/01/25 00:30 Ketorolac Tromethamine 15 mg Q6HPRN PRN IV 09/01/25 00:30 09/06/25 00:29 09/02/25 19:44 15 MG Sodium Chloride 1,000 ml @ 75 mls/hr [id number] IV 09/01/25 00:45 09/02/25 16:39 75 MLS/HR Clonidine HCl UD PRN PO 09/01/25 00:45 09/02/25 12:15 0.1 MG Levofloxacin/ Dextrose 100 ml @ 100 mls/hr DAILY IV 09/01/25 10:00 09/02/25 09:08 100 MLS/HR Tamsulosin HCl 0.4 mg QPM PO 09/01/25 18:00 09/02/25 17:57 0.4 MG laboratory and microbiology Laboratory Tests 09/01/25 11:50 09/01/25 06:22 Test 09/01/25 06:22 Range/Units Serum Glucose 103 74-106 mg/dL Problem List R UVJ stone Partially treated urinary tract infection Hypovolemia Uncontrolled hypertension Assessment/Plan Continue hospitalization on telemetry floor Reviewed input of Ms Brooklynn Campos Continue IV hydration Continue IV antibiotics Continue parenteral analgesics Start patient on valsartan-side effects are explained to the patient JESSE WOOTEN MD Sep 02, 2025 21:52
== END 2025-09-04 05:57 | disposition home or self-care (01) | DRG 694 ==
LOC: CENTRAL 20:38
PROVIDERS: ADMIT Specialist; ATTEND Specialist
DX: N20.2 Calculus of kidney with calculus of ureter (principal); N10 Acute pyelonephritis; N21.0 Calculus in bladder; Z20.822 Contact with and (suspected) exposure to COVID-19; K76.0 Fatty (change of) liver, not elsewhere classified; I10 Essential (primary) hypertension; E86.1 Hypovolemia; E78.00 Pure hypercholesterolemia, unspecified; E66.9 Obesity, unspecified; K21.9 Gastro-esophageal reflux disease without esophagitis; Z79.84 Long term (current) use of oral hypoglycemic drugs; Z79.2 Long term (current) use of antibiotics; Z68.28 Body mass index [BMI] 28.0-28.9, adult
CPT/HCPCS: 36415; 74018; 74176; 80053; 80061; 81001; 82150; 82607; 83036; 83735; 84100; 84132; 84154; 85025; 85610; 85730; 87040; 87086; 87426; 87804; G0378; J1885; J1956